=== PATIENT | female | born 1975 | race Caucasian/White ===

== ENCOUNTER 2024-04-10 00:46 | Emergency (ER) | payer OTHER ==
[~2024-04-10] VITALS: Ht 175.3 cm; Wt 90.7 kg
[2024-04-10 00:54] VITALS: BP 113/90; TEMP 98; O2SAT 98
[2024-04-10] MEDS ORDERED: IBUPROFEN 400 MG TABLET ONE (01:10)
[2024-04-10] MEDS: IBUPROFEN 400 MG TABLET PO ONE (01:18)
== END 2024-04-10 01:22 | disposition home or self-care (01) ==
LOC: ER 00:48
DX: M54.2 Cervicalgia (principal); M54.9 Dorsalgia, unspecified; M79.18 Myalgia, other site; I10 Essential (primary) hypertension; Z59.00 Homelessness unspecified; Z86.59 Personal history of other mental and behavioral disorders